=== PATIENT | male | born 1990 | race Native Hawaiian/Other Pacific Islander ===

== ENCOUNTER 2016-08-05 17:43 | Emergency (ER) | payer MEDICAID, OTHER ==
--- NOTE | 2016-08-05 18:48 | RAD ---
HISTORY: Pain after chopping wood. No specific injury. COMPARISON: None. TECHNIQUE: three view. Wrist Laterality:right FINDINGS: Bones: No fracture or dislocation. Joints: Normal Soft tissue: Normal IMPRESSION: No fracture or dislocation.
[2016-08-05] MEDS ORDERED: IBUPROFEN 600 MG TABLET ONE (19:14)
[2016-08-05] MEDS ORDERED: ACETAMINOPHEN 325 MG TABLET ONE (19:15)
== END 2016-08-05 19:21 | disposition home or self-care (01) ==
LOC: ED 17:43
DX: M25.531 Pain in right wrist (principal); X50.3XXA Overexertion from repetitive movements, initial encounter; Y93.H9 Activity, other involving exterior property and land maintenance, building and construction; X58.XXXA Exposure to other specified factors, initial encounter
CPT/HCPCS: 73110; 99283 ×2; A9270 ×2